=== PATIENT | female | born 1950 | race Caucasian/White ===

== ENCOUNTER 2020-04-17 16:16 | Inpatient (IN) | payer MEDICARE ==
[~2020-04-17] VITALS: Ht 157.5 cm; Wt 77.5 kg
[2020-04-17] MEDS ORDERED: FLUORESCEIN OPHTH TEST STRIP. ONE (16:46)
[2020-04-17] MEDS ORDERED: TETRACAINE 0.5% OPHTH SOLUTION 4ML BOTTLE. ONE (16:46)
--- NOTE | 2020-04-17 16:47 | EKG ---
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
[2020-04-17 16:50] LABS: BASO # 0.2 x10^3/uL (0.0-0.2); BASO % 1 % (0-3); EOS % 0 % (0-3); HEMATOCRIT 31.4 % (36.0-47.0); HEMOGLOBIN 9.8 g/dL (12.0-15.5); LYMPH # 1.8 x10^3/uL (1.0-4.8); LYMPH % 8 % (24-48); MEAN CORPUSCULAR HEMOGLOBIN 20 pg (25-35); MEAN CORPUSCULAR HGB CONC 31 g/dL (31-37); MEAN CORPUSCULAR VOLUME 65 fL (79-100); MONO # 2.3 x10^3/uL (0.0-1.1); MONO % 11 % (0-9); NEUT # 16.4 x10^3/uL (1.8-7.7); NEUT % 79 % (31-73); PLATELET COUNT 477 x10^3/uL (140-400); RED BLOOD COUNT 4.85 x10^6/uL (3.50-5.40); RED CELL DISTRIBUTION WIDTH 19.9 % (11.5-14.5); WHITE BLOOD COUNT 20.7 x10^3/uL (4.0-11.0)
[2020-04-17] MEDS ORDERED: TETRACAINE 0.5% OPHTH SOLUTION 4ML BOTTLE. OU ONE (17:00)
[2020-04-17] MEDS ORDERED: FLUORESCEIN OPHTH TEST STRIP. OU ONE (17:00)
--- NOTE | 2020-04-17 17:08 | PHYS DOC ---
Past Medical History Past Medical History: No Pertinent History Past Surgical History: No Surgical History Smoking Status: Former Smoker Alcohol Use: None Drug Use: None General Adult EDM: Chief Complaint: VISION PROBLEM HPI: HPI: Patient is a 70 year old female who was brought to ER for evaluation by her family due to frontal headache with loss of vision bilaterally since 7 pm on 04/15/20. Patient stated that since Thursday she started having headache and blurry vision, then she gradually lost her vision over that time. She has have headache on the forehead area. She denies any weakness or numbness anywhere. Patient denies any cough, no fever, no chest pain. Patient does complain of tr ouble breathing when she walks. Patient lives alone by herself, her family could not get a hold of her over the weekend so they came and checked on her and decided to take her here for evaluation. Patient do not have a doctor, she had not seen a doctor for a long time, patient was a former smoker. Patient is not currently on any medication. Patient is not sure if she has been exposed to anybody with the coronavirus. Review of Systems: Review of Systems: Constitutional: Denies fever or chills. [] Eyes: positive for vision loss HENT: Denies nasal congestion or sore throat. [] Respiratory: Denies cough or shortness of breath. [] Cardiovascular: Denies chest pain or edema. [] GI: Denies abdominal pain, nausea, vomiting, bloody stools or diarrhea. [] : Denies dysuria. [] Musculoskeletal: Denies back pain or joint pain. [] Integument: Denies rash. [] Neurologic: Positive for headache, no focal weakness or sensory changes. [] Endocrine: Denies polyuria or polydipsia. [] Lymphatic: Denies swollen glands. [] Psychiatric: Denies depression or anxiety. [] Heart Score: Risk Factors: Risk Factors: DM, Current or recent (<one month) smoker, HTN, HLP, family history of CAD, obesity. Risk Scores: Score 0 - 3: 2.5% MACE over next 6 weeks - Discharge Home Score 4 - 6: 20.3% MACE over next 6 weeks - Admit for Clinical Observation Score 7 - 10: 72.7% MACE over next 6 weeks - Early Invasive Strategies Current Medications: Current Medications Medications (Trade) Dose Ordered Sig/Rachelle Start Time Stop Time Status Last Admin Dose Admin Fluorescein Sodium (Ful-Zahraa) 1 strip 1X ONCE 04/17/20 17:00 04/17/20 17:01 DC 04/17/20 16:51 1 STRIP Tetracaine HCl (Tetracaine) 40 drop STK-MED ONCE 04/17/20 16:46 04/17/20 16:46 DC Timolol Maleate (Timoptic 0.5% Ophth) 1 drop DAILY STAT 04/17/20 17:01 04/17/20 17:02 UNV Allergies: Allergies: Allergies Coded Allergies Type Severity Reaction Last Updated Verified No Known Drug Allergies 04/17/20 No Physical Exam: PE: Constitutional: Well developed, well nourished, no acute distress, non-toxic appearance. [] HENT: Normocephalic, atraumatic, bilateral external ears normal, oropharynx moist, no oral exudates, nose normal. [] Eyes: EOMI, conjunctiva with mild injection, cornea appears cloudy, pupils were dilated to 5 mm bilaterally, sluggish. Patient could not see any fingers in front of her eyes. She just saw light. Neck: Normal range of motion, no tenderness, supple, no stridor. [] Cardiovascular:Heart rate regular rhythm, no murmur [] Lungs & Thorax: Bilateral breath sounds clear to auscultation [] Abdomen: Bowel sounds normal, soft, no tenderness, no masses, no pulsatile masses. [] Skin: Warm, dry, no erythema, no rash. [] Back: No tenderness, no CVA tenderness. [] Extremities: No tenderness, no cyanosis, no clubbing, ROM intact, no edema. [] Neurologic: Alert and oriented X 3, normal motor function, normal sensory fu nction, no focal deficits noted. [] Psychologic: Affect normal, judgement normal, mood normal. [] Current Patient Data: Labs: Laboratory Tests Test 04/17/20 16:29 04/17/20 16:37 Glucose (Fingerstick) 160 mg/dL (70-99) H White Blood Count 20.7 x10^3/uL (4.0-11.0) H Red Blood Count 4.85 x10^6/uL (3.50-5.40) Hemoglobin 9.8 g/dL (12.0-15.5) L Hematocrit 31.4 % (36.0-47.0) L Mean Corpuscular Volume 65 fL (79-100) L Mean Corpuscular Hemoglobin 20 pg (25-35) L Mean Corpuscular Hemoglobin Concent 31 g/dL (31-37) Red Cell Distribution Width 19.9 % (11.5-14.5) H Platelet Count 477 x10^3/uL (140-400) H Neutrophils (%) (Auto) 79 % (31-73) H Lymphocytes (%) (Auto) 8 % (24-48) L Monocytes (%) (Auto) 11 % (0-9) H Eosinophils (%) (Auto) 0 % (0-3) Basophils (%) (Auto) 1 % (0-3) Neutrophils # (Auto) 16.4 x10^3/uL (1.8-7.7) H Lymphocytes # (Auto) 1.8 x10^3/uL (1.0-4.8) Monocytes # (Auto) 2.3 x10^3/uL (0.0-1.1) H Eosinophils # (Auto) 0.0 x10^3/uL (0.0-0.7) Basophils # (Auto) 0.2 x10^3/uL (0.0-0.2) Platelet Estimate Pending Laboratory Tests 04/17/20 16:37 EKG: EKG: EKG was done at 1632, heart rate of 111 BPM, sinus tachycardia, NO STEMI. Radiology/Procedures: Radiology/Procedures: [][facility] [address] [place] [address] IMAGING REPORT Signed PATIENT: CELI REHMAN ACCOUNT: [id number] : 1950 LOCATION: ER AGE: 70 SEX: F EXAM STATUS: REG ER ORD. PHYSICIAN: ALEC DE LEON DO REASON: HEADACHE,LOSS OF VISION BILATERALLY SINCE 2 DAYS AGO PROCEDURE: CT HEAD WO CONTRAST CT HEAD/BRAIN WO History: Reason: HEADACHE,LOSS OF VISION BILATERALLY SINCE 2 DAYS AGO / Spl. Instructions: / History: Comparison: None. Technique: Noncontrast CT imaging was performed of the head. Exposure: One or more of the following individualized dose reduction techniques were utilized for this examination: 1. Automated exposure control 2. Adjustment of the mA and/or kV according to patient size 3. Use of iterative reconstruction technique. Findings: No intracranial hemorrhage. No mass effect. No hydrocephalus. Mild foci of decreased attenuation within hemispheric white matter, most often due to chronic microvascular ischemia. Mild brain parenchymal volume loss. Imaged orbits are unremarkable. Imaged paranasal sinuses and mastoid air cells are clear. No acute calvarial fracture. Impression: 1. No acute intracranial abnormality. Electronically signed by: Shiva Barksdale DO (04/17/2020 5:49 PM) SASHAELLYN DICTATED and SIGNED BY: SHIVA BARKSDALE DO DATE: 04/17/20 [id number] [facility] [address] [place] [address] IMAGING REPORT Signed PATIENT: CELI REHMAN ACCOUNT: [id number] : 1950 LOCATION: ER AGE: 70 SEX: F EXAM STATUS: REG ER ORD. PHYSICIAN: ALEC DE LEON DO REASON: SOA PROCEDURE: CHEST AP ONLY XR CHEST 1V History: Reason: SOA / Spl. Instructions: / History: Comparison: None. Findings: No consolidation or pleural effusion. Normal heart size. No pneumothorax. Impression: 1. No acute cardiopulmonary process. Electronically signed by: Shiva Barksdale DO (04/17/2020 6:30 PM) SASHAELLYN DICTATED and SIGNED BY: SHIVA BARKSDALE DO DATE: 04/17/20 [id number] Course & Med Decision Making: Course & Med Decision Making Pertinent Labs and Imaging studies reviewed. (See chart for details) using Tonnel Pen to measure IO PRESSURE OF BOTH EYES: Intraoccular pressure on right eye: 45 Intraoccular pressure on left eye: 44 THESE PRESSURE READING ARE HIGH, CONSISTENT WITH GLAUCOMA. Discussed with the Opthalmologist addiction professional, Dr. SANTAMARIA WHO RECOMMENDED .5 % TIMOLOL 1 DROP IN EACH EYE BID, DIAMOX 500 MG IV BID, MANNITOL INFUSION 1.5 G/KG OVER 60 MINUTES, WILL SEE PATIENT IN THE HOSPITAL. Discussed with Dr. Mckeon, hospitalist, who agreed to admit patient. At 1805, after timolol eye drop were given and iv Diamox was given, patient said she felt much better, she can actually see out of her eyes now. Patient can read the number on her phone at this time. Dragon Disclaimer: Dragon Disclaimer: This electronic medical record was generated, in whole or in part, using a voice recognition dictation system. Departure Departure Impression: Primary Impression: Glaucoma Additional Impressions: Headache Binocular vision loss Person under investigation for COVID-19 Disposition: ADMITTED INPT THIS HOSP Admitting Physician: EDIL (DR. MCKEON) Condition: IMPROVED Referrals: NO PCP (PCP) ALEC DE LEON DO Apr 17, 2020 17:08
[2020-04-17 17:15] LABS: % BANDS 2 % (0-9); % LYMPHS 5 % (24-48); % MONOS 9 % (0-10); % SEGS 84 % (35-66); ANISOCYTOSIS SLIGHT; HYPOCHROMIA MARKED; MICROCYTOSIS MARKED; PLT ESTIMATE INCREASED (ADEQUATE); POIKILOCYTOSIS SLIGHT
[2020-04-17] MEDS ORDERED: TIMOLOL 0.5% OPHTH SOLUTION 5ML BOTTLE. OU ONE (17:15)
[2020-04-17] MEDS ORDERED: acetaZOLAMIDE SODIUM 500 MG VIAL. IVP ONE (17:30)
--- NOTE | 2020-04-17 17:51 | RAD ---
CT HEAD/BRAIN WO History: Reason: HEADACHE,LOSS OF VISION BILATERALLY SINCE 2 DAYS AGO / Spl. Instructions: / History : Comparison: None. Technique: Noncontrast CT imaging was performed of the head. Exposure: One or more of the following individualized dose reduction techniques were utilized for thi s examination: 1. Automated exposure control 2. Adjustment of the mA and/or kV according to patient size 3. Use of iterative reconstruction technique. Findings: No intracranial hemorrhage. No mass effect. No hydrocephalus. Mild foci of decreased attenuation within hemispheric white matter, most often due to chronic microva scular ischemia. Mild brain parenchymal volume loss. Imaged orbits are unremarkable. Imaged paranasal sinuses and mastoid air cells are clear. No acute ca lvarial fracture. Impression: 1. No acute intracranial abnormality. Electronically signed by: Shiva Barksdale DO (04/17/2020 5:49 PM) [facility]
[2020-04-17 17:53] LABS: ALBUMIN 3.1 g/dL (3.4-5.0); ALBUMIN/GLOBULIN RATIO 0.8 (1.0-1.7); CALCIUM 8.9 mg/dL (8.5-10.1); CREATININE 0.8 mg/dL (0.6-1.0); GFR 70.7; MAGNESIUM 2.1 mg/dL (1.8-2.4); POTASSIUM 3.7 mmol/L (3.5-5.1); TOTAL BILIRUBIN 1.2 mg/dL (0.2-1.0); TOTAL PROTEIN 7.2 g/dL (6.4-8.2)
[2020-04-17] MEDS ORDERED: TOTAL VOLUME IV ONE ×2 (18:00)
[2020-04-17] MEDS ORDERED: MANNITOL IV ONE ×2 (18:00)
[2020-04-17] MEDS ORDERED: IV NORMAL SALINE 1000ML BAG 1,000 ML IV ONE (18:00)
[2020-04-17] MEDS: cefTRIAXone IV Push 1 GM VIAL. IVP SCH (18:13)
--- NOTE | 2020-04-17 18:29 | HP ---
ADMIT DATE: 04/17/2020 CHIEF COMPLAINT: Visual problems. HISTORY OF PRESENT ILLNESS: The patient is a pleasant 70-year-old female who developed visual problems over the past 3 days. It started on Thursday, it has gotten a lot worse. In fact, today she could not even see her finger. Dr. Alicea our ER physician checked her ocular pressures and indeed they are above normal. They are quite high at 45. We were concerned that she has acute glaucoma. Dr. Alicea called Dr. Espinoza, our director of sales support who is club concierge. He is agreed to help us with this case. We are going to give her IV mannitol, beta morenita eyedrops, acetazolamide. The patient is currently being examined in the ER. PAST MEDICAL HISTORY: Previous tobacco abuse. ALLERGIES: None. FAMILY HISTORY: Diabetes. SOCIAL HISTORY: She is retired. She does not drink, smoke or take drugs. MEDICATIONS: Reviewed, please refer to the MRAD. REVIEW OF SYSTEMS: GENERAL: No history of weight change, weakness or fevers. SKIN: No bruising, hair changes or rashes. EYES: She is complaining of some visual changes. She cannot see well. She was able to grab my card though, although she was not able to read it. NOSE AND THROAT: No history of nosebleeds, hoarseness or sore throat. HEART: No history of palpitations, chest pain or shortness of breath on exertion. LUNGS: Denies cough, hemoptysis, wheezing or shortness of breath. GASTROINTESTINAL: Denies changes in appetite, nausea, vomiting, diarrhea or constipation. GENITOURINARY: No history of frequency, urgency, hesitancy or nocturia. NEUROLOGIC: Denies history of numbness, tingling, tremor or weakness. PSYCHIATRIC: No history of panic, anxiety or depression. ENDOCRINE: No history of heat or cold intolerance, polyuria or polydipsia. EXTREMITIES: Denies muscle weakness, joint pain, pain on walking or stiffness. PHYSICAL EXAMINATION: VITALS: Within normal limits and are stable. GENERAL: No apparent distress. Alert and oriented. HEENT: Normal cephalic atraumatic, external auditory canals are patent EYES: She has some reddening of the right sclerae. Ocular pressures are 45. Extraocular muscles are intact. MUSCULOSKELETAL: Well developed, well nourished, good range of motion ENDOCRINE: No thyromegaly was palpated LYMPHATICS: No cervical chain or axillary nodes were noted HEMATOPOIETIC: No bruising NECK: Supple, no JVD, no thyromegaly was noted. LUNGS: Clear to auscultation in all lung [place] without rhonchi or wheezing. HEART: RRR, S1, S2 present. Peripheral pulses intact, no obvious murmurs were noted. ABDOMEN: Soft, nontender. Positive bowel sounds no organomegaly, normal bowel sounds. EXTREMITIES: Without any cyanosis, clubbing, or edema. Pedal pulses intact, Homans sign is negative. NEUROLOGIC: Normal speech, normal tone. A & O x3, moves all extremities, no obvious focal deficits. PSYCHIATRIC: Normal affect, normal mood. Stable. SKIN: No ulcerations or rashes, good skin turgor, no jaundice. VASCULAR: Good capillary refill, neurovascular bundle appears to be intact. LABORATORY DATA: White count is 20, hemoglobin 9.8, platelets 477. Electrolytes: Sodium 136, potassium 3.7, chloride ____, bicarbonate 22, BUN 24, creatinine 0.8, glucose 160. BNP slightly high at 594. Troponin is 0. Albumin is low at 3.1. CT of the head, I reviewed the films myself. I do not see anything obvious. Radiology says there is no obvious intracranial abnormality on his read. ASSESSMENT AND PLAN: Probable acute glaucoma with ocular pressures greater than 45. The patient has been admitted. We will start acetazolamide, mannitol and beta morenita eyedrops. Consult Ophthalmology. Home meds, DVT prophylaxis. Full code. Regarding the leukocytosis, I am also going to add in IV Rocephin, IV fluids. We are swabbing her for COVID-19. SEAN CABRERA DO DR: VLADISLAV/edinson JOB#: [id number] / [id number]
--- NOTE | 2020-04-17 18:32 | RAD ---
XR CHEST 1V History: Reason: SOA / Spl. Instructions: / History: Comparison: None. Findings: No consolidation or pleural effusion. Normal heart size. No pneumothorax. Impression: 1. No acute cardiopulmonary process. Electronically signed by: Shiva Barksdale DO (04/17/2020 6:30 PM) [facility]
[2020-04-17] MEDS ORDERED: TIMOLOL 0.5% OPHTH SOLUTION 5ML BOTTLE. OU SCH (19:00)
[2020-04-17] MEDS ORDERED: MANNITOL 25% 12.5 G/50 ML VIAL. IV ONE (19:00)
[2020-04-17] MEDS ORDERED: MANNITOL 20% PREMIX 500 ML IV ONE (19:30)
[2020-04-17 19:46] LABS: BILIRUBIN,URINE NEGATIVE (NEG); CLARITY,URINE CLEAR; COLOR,URINE YELLOW; NITRITE,URINE POSITIVE (NEG); PH,URINE 8.5 (<5.0-8.0); PROTEIN,URINE 30 mg/dL (NEG-TRACE)
[2020-04-17 19:52] LABS: RBC,URINE 0 /HPF (0-2); WBC,URINE 20-40 /HPF (0-4)
[2020-04-17 19:53] LABS: BACTERIA,URINE FEW /HPF (0-FEW)
[2020-04-17 20:49] VITALS: BP 155/78
--- NOTE | 2020-04-17 21:00 | NUR ---
The patient, CELI REHMAN, 70 y/o, F admitted by SEAN CABRERA III, DO, was given written information regarding hospital policies, unit procedures and contact persons. pt arrived to unit via gurney. pivoted to her bed. states she can see shadows and the STOP sign on the wall at the end of her bed. instructed not to get oob. orders say bed rest. will try purwic then go to bed palacios. Valuables were checked and pt belongings were documented in the EMR. kept at bed side. history and assesment finished, last seen by medical was 1991. lcrn
[2020-04-17] MEDS: TIMOLOL 0.5% OPHTH SOLUTION 5ML BOTTLE. OU SCH (21:37)
[2020-04-17] MEDS: BRIMONIDINE 0.2% OPHTH SOLUTION 5ML BOTTLE. OU SCH ×2 (21:37→21:54)
[2020-04-17 22:36] VITALS: BP 121/51
[2020-04-17] MEDS ORDERED: ACET325T21 PO (23:40)
[2020-04-17] MEDS ORDERED: NAPR220T70 PO (23:40)
[2020-04-18 02:44] VITALS: BP 136/51
[2020-04-18 07:00] VITALS: BP 115/47
[2020-04-18] MEDS: TIMOLOL 0.5% OPHTH SOLUTION 5ML BOTTLE. OU SCH ×2 (08:05→21:11)
[2020-04-18] MEDS: BRIMONIDINE 0.2% OPHTH SOLUTION 5ML BOTTLE. OU SCH ×2 (08:12→21:11)
--- NOTE | 2020-04-18 08:17 | PDOC ---
[employer] PROGRESS NOTE Date of Service DOS: DATE: 04/18/20 TIME: 08:10 Chief Complaint Chief Complaint - Acute glaucoma - Headache - Bilateral visual loss History of Present Illness History of Present Illness 04/18/2020 - Pt seen and examined - Sarthak RN - Chart reviewed Vitals/I&O Vitals/I&O: Vital Signs Date Time Temp Pulse Resp B/P (MAP) Pulse Ox O2 Delivery O2 Flow Rate FiO2 04/18/20 02:44 98.9 79 16 136/51 (79) 98 Room Air 98.9 I & O 04/17/20 04/17/20 04/18/20 15:00 23:00 07:00 Intake Total 260 ml 0 ml Output Total 1400 ml 300 ml Balance -1140 ml -300 ml Physical Exam Physical Exam: Eyes; patient's vision is improving she can see how many fingers I have and can see the clock General: Alert, No acute distress Heart: Regular rate Lungs: Clear Abdomen: Normal bowel sounds Extremities: No clubbing Skin: No rashes Labs Labs: Laboratory Tests Test 04/17/20 16:29 04/17/20 16:37 04/17/20 17:30 04/17/20 18:40 Glucose (Fingerstick) 160 mg/dL (70-99) White Blood Count 20.7 x10^3/uL (4.0-11.0) Red Blood Count 4.85 x10^6/uL (3.50-5.40) Hemoglobin 9.8 g/dL (12.0-15.5) Hematocrit 31.4 % (36.0-47.0) Mean Corpuscular Volume 65 fL (79-100) Mean Corpuscular Hemoglobin 20 pg (25-35) Mean Corpuscular Hemoglobin Concent 31 g/dL (31-37) Red Cell Distribution Width 19.9 % (11.5-14.5) Platelet Count 477 x10^3/uL (140-400) Neutrophils (%) (Auto) 79 % (31-73) Lymphocytes (%) (Auto) 8 % (24-48) Monocytes (%) (Auto) 11 % (0-9) Eosinophils (%) (Auto) 0 % (0-3) Basophils (%) (Auto) 1 % (0-3) Neutrophils # (Auto) 16.4 x10^3/uL (1.8-7.7) Lymphocytes # (Auto) 1.8 x10^3/uL (1.0-4.8) Monocytes # (Auto) 2.3 x10^3/uL (0.0-1.1) Eosinophils # (Auto) 0.0 x10^3/uL (0.0-0.7) Basophils # (Auto) 0.2 x10^3/uL (0.0-0.2) Segmented Neutrophils % 84 % (35-66) Band Neutrophils % 2 % (0-9) Lymphocytes % 5 % (24-48) Monocytes % 9 % (0-10) Platelet Estimate Increased (ADEQUATE) Hypochromasia Marked Poikilocytosis Slight Anisocytosis Slight Microcytosis Marked Lactic Acid Level 2.5 mmol/L (0.4-2.0) Sodium Level 136 mmol/L (136-145) Potassium Level 3.7 mmol/L (3.5-5.1) Chloride Level 101 mmol/L (98-107) Carbon Dioxide Level 22 mmol/L (21-32) Anion Gap 13 (6-14) Blood Urea Nitrogen 24 mg/dL (7-20) Creatinine 0.8 mg/dL (0.6-1.0) Estimated GFR (Cockcroft-Gault) 70.7 BUN/Creatinine Ratio 30 (6-20) Glucose Level 131 mg/dL (70-99) Calcium Level 8.9 mg/dL (8.5-10.1) Magnesium Level 2.1 mg/dL (1.8-2.4) Total Bilirubin 1.2 mg/dL (0.2-1.0) Aspartate Amino Transf (AST/SGOT) 20 U/L (15-37) Alanine Aminotransferase (ALT/SGPT) 25 U/L (14-59) Alkaline Phosphatase 74 U/L (46-116) Troponin I Quantitative < 0.017 ng/mL (0.000-0.055) EN-Pfp-N-Type Natriuretic Peptide 594 pg/mL (0-124) Total Protein 7.2 g/dL (6.4-8.2) Albumin 3.1 g/dL (3.4-5.0) Albumin/Globulin Ratio 0.8 (1.0-1.7) SARS-CoV-2 Antigen (Rapid) Negative (NEGATIVE) Test 04/17/20 19:30 04/17/20 21:25 Urine Collection Type Unknown Urine Color Yellow Urine Clarity Clear Urine pH 8.5 (<5.0-8.0) Urine Specific [place] 1.015 (1.000-1.030) Urine Protein 30 mg/dL (NEG-TRACE) Urine Glucose (UA) Negative mg/dL (NEG) Urine Ketones (Stick) Negative mg/dL (NEG) Urine Blood Negative (NEG) Urine Nitrite Positive (NEG) Urine Bilirubin Negative (NEG) Urine Urobilinogen Dipstick 1.0 mg/dL (0.2 mg/dL) Urine Leukocyte Esterase Large (NEG) Urine RBC 0 /HPF (0-2) Urine WBC 20-40 /HPF (0-4) Urine Squamous Epithelial Cells Few /LPF Urine Bacteria Few /HPF (0-FEW) Lactic Acid Level 1.9 mmol/L (0.4-2.0) Review of Systems Review of Systems: No rashes. Pt is oriented and in NAD. Assessment and Plan Assessmemt and Plan Problems Medical Problems: (1) Binocular vision loss Status: Acute (2) Glaucoma Status: Acute (3) Headache Status: Acute (4) Person under investigation for COVID-19 Status: Acute Assessment: 1. Acute Glaucoma 2. Bilateral visual loss 3. Headache Plan: 1. Continue Mannitol, Acetazolamide, and beta morenita eye droplets 2. Await ophthalmology input 3. Cont monitoring 4. Full code 5. Appreciate specialist input Comment Review of Relevant I have reviewed the following items alana (where applicable) has been applied. Medications: Current Medications Medications (Trade) Dose Ordered Sig/Rachelle Route PRN Reason Start Time Stop Time Status Last Admin Dose Admin Tetracaine HCl (Tetracaine) 1 drop 1X ONCE OU 04/17/20 17:00 04/17/20 17:01 DC 04/17/20 16:51 Fluorescein Sodium (Ful-Zahraa) 1 strip 1X ONCE OU 04/17/20 17:00 04/17/20 17:01 DC 04/17/20 16:51 Timolol Maleate (Timoptic 0.5% Ophth) 1 drop 1X ONCE OU 04/17/20 17:15 04/17/20 17:16 DC 04/17/20 17:32 Acetazolamide Sodium (Diamox Inj) 500 mg 1X ONCE IVP 04/17/20 17:30 04/17/20 17:31 DC 04/17/20 17:33 Mannitol 112.5 g/ Miscellaneous 450 ml @ 450 mls/hr 1X ONCE IV 04/17/20 18:00 04/17/20 18:59 DC 04/17/20 18:05 Sodium Chloride 1,000 ml @ 1,000 mls/hr 1X ONCE IV 04/17/20 18:00 04/17/20 18:59 DC 04/17/20 18:06 Ceftriaxone Sodium (Rocephin) 1 gm Q24H IVP 04/17/20 18:00 04/17/20 18:13 Mannitol 500 ml @ 600 mls/hr 1X ONCE IV 04/17/20 19:30 04/17/20 20:19 DC 04/17/20 19:10 Mannitol (Mannitol) 12.5 g 1X ONCE IV 04/17/20 19:00 04/17/20 19:02 DC 04/17/20 19:11 Acetazolamide (Diamox) 500 mg BID PO 04/17/20 19:01 04/17/20 19:14 Timolol Maleate (Timoptic 0.5% Ophth) 1 drop BID OU 04/17/20 21:00 04/18/20 08:05 Brimonidine Tartrate (Alphagan) 1 drop BID OU 04/17/20 21:00 04/17/20 21:37 Justifications for Admission Other Justification SEAN CABRERA III DO Apr 18, 2020 08:17
[2020-04-18 11:00] VITALS: BP 120/50
--- NOTE | 2020-04-18 13:39 | NUR ---
SS following for discharge planning. SS reviewed pt chart and discussed with pt RN. Pt is from home and is currently on room air. COVID19 negative on rapid test. Pt on IV Rocephin for UTI. Probable discharge to home tomorrow. SS will continue to follow for discharge planning.
--- NOTE | 2020-04-18 14:22 | NUR ---
SS following up with discharge planning. Manager Electrical, Dr. Espinoza, saw pt in room and reported that pt is to follow up with Dr. Edison Harrington in [place], [place] tomorrow for further evaluation.
--- NOTE | 2020-04-18 14:22 | NUR ---
spoke to Dr. Espinoza over the phone about pt. Pt is to discharge tomorrow into Dr. Edison Harrington's care, [phone]. Pt will likely receive in office laser surgery on 04/19, then to schedule cataract surgery on a later date. 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 Dr. Espinoza stated the patient is to continued both eye drops and PO medications until further instructions from Dr. Harrington.
[2020-04-18 15:00] VITALS: BP 121/51
[2020-04-18] MEDS: cefTRIAXone IV Push 1 GM VIAL. IVP SCH (17:26)
[2020-04-18 19:22] VITALS: BP 141/87
--- NOTE | 2020-04-18 20:33 | PN ---
DATE: 04/18/2020 Please note the patient was a patient that presented to the Emergency Room on 04/17/2020 with a 2-day history of vision loss in both eyes, which had progressed over the previous 2 days. She was noted in the Emergency Room to have elevated intraocular pressures by Andres-Pen in the mid 40s. IV mannitol was administered in the Emergency Room along with oral Diamox and topical timolol and brimonidine. The patient has noted improvement in her visual function on bedside examination on 04/18. Dr. Edison Cotton was contacted as the patient had seen Dr. Cotton in 03/2019. At that time, she was noted to have narrow angles and at risk for narrow-angle glaucoma and was to be scheduled for cataract extraction in both eyes with phacomorphic lenses. The patient did not follow up. Dr. Cotton was consulted today and has agreed to see the patient in transfer on the and proceed with either iridotomy and subsequent cataract extraction as safely determined. The patient will be discharged on topical medications along with oral Diamox and the care will be transferred to Dr. Cotton's care. KELSEY SANTAMARIA MD DR: IGNACIA/edinson JOB#: [id number] / [id number]
[2020-04-18] MEDS: LACTOBACILLUS RHAMNOSUS GG 1 CAPSULE. PO SCH (21:11)
[2020-04-18 22:10] VITALS: BP 136/69
[2020-04-19 02:06] VITALS: BP 137/54
[2020-04-19 07:30] VITALS: BP 124/42
[2020-04-19] MEDS: BRIMONIDINE 0.2% OPHTH SOLUTION 5ML BOTTLE. OU SCH ×2 (08:23→21:48)
[2020-04-19] MEDS: TIMOLOL 0.5% OPHTH SOLUTION 5ML BOTTLE. OU SCH ×2 (08:23→21:02)
[2020-04-19] MEDS: LACTOBACILLUS RHAMNOSUS GG 1 CAPSULE. PO SCH ×2 (08:23→21:06)
--- NOTE | 2020-04-19 10:37 | PDOC ---
[facility] PROGRESS NOTE Date of Service DOS: DATE: 04/19/20 TIME: 10:36 Chief Complaint Chief Complaint - Acute glaucoma - Headache - Bilateral visual loss History of Present Illness History of Present Illness 04/19/2020 No acute events overnight. Patient seen and examined bedside. Reports improved vision in both eyes. No pain reported at this time. Patient's chart, labs, images were reviewed and discussed with RN. Pending Ortho scheduling for laser surgery. Anticipate discharge in the next 24 to 48 hours. 04/18/2020 - Pt seen and examined - Dw RN - Chart reviewed Vitals/I&O Vitals/I&O: Vital Signs Date Time Temp Pulse Resp B/P (MAP) Pulse Ox O2 Delivery O2 Flow Rate FiO2 04/19/20 08:00 Room Air 04/19/20 07:30 96.9 78 16 124/42 (69) 98 96.9 I & O 04/18/20 04/18/20 04/19/20 15:00 23:00 07:00 Intake Total 800 ml 700 ml Output Total 700 ml Balance 800 ml 0 ml Physical Exam Physical Exam: Eyes; patient's vision is improving she can see how many fingers I have and can see the clock General: Alert, No acute distress Heart: Regular rate Lungs: Clear Abdomen: Normal bowel sounds Extremities: No clubbing Skin: No rashes Assessment and Plan Assessmemt and Plan Problems Medical Problems: (1) Binocular vision loss Status: Acute (2) Glaucoma Status: Acute (3) Headache Status: Acute (4) Person under investigation for COVID-19 Status: Acute Comment Review of Relevant I have reviewed the following items alana (where applicable) has been applied. Medications: Current Medications Medications (Trade) Dose Ordered Sig/Rachelle Route PRN Reason Start Time Stop Time Status Last Admin Dose Admin Lactobacillus Rhamnosus (Culturelle) 1 cap BID PO 04/18/20 21:00 04/19/20 08:23 Justifications for Admission Other Justification ORLY ALVAREZ MD Apr 19, 2020 10:37
[2020-04-19 11:00] VITALS: BP 131/65
--- NOTE | 2020-04-19 12:17 | NUR ---
SS following up with discharge planning. SS reviewed pt chart and discussed with pt RN. Pt is currently on room air. COVID19 negative. Pt on IV Rocephin. Pt needing appointment with Dr. Edison Cotton at [address], [place] [address], . SS contacted Dr. Cotton's office to confirm that appointment has been made. Per RN, pt's daughter was to contact the office and schedule appointment this morning. Possible need for home healthcare. Liz from [facility] meeting with pt and discussing home healthcare. SS will continue to follow for discharge planning.
[2020-04-19 15:00] VITALS: BP 117/46
--- NOTE | 2020-04-19 15:37 | NUR ---
SS following up with discharge planning. SS met with pt and spoke with pt's daughter via phone. Pt has appointment tomorrow at Dr. Cotton's office. They are able to see pt at either 1330 or 1400. Pt's daughter contacted office to confirm appointment. Pt requesting to return to home tomorrow so she can attend her appointment,
[2020-04-19] MEDS: cefTRIAXone IV Push 1 GM VIAL. IVP SCH (17:55)
[2020-04-19 19:54] VITALS: BP 137/62
[2020-04-19 22:22] VITALS: BP 104/68
[2020-04-20 02:25] VITALS: BP 127/63
[2020-04-20 07:00] VITALS: BP 122/53
[2020-04-20] MEDS: LACTOBACILLUS RHAMNOSUS GG 1 CAPSULE. PO SCH (07:37)
[2020-04-20] MEDS: BRIMONIDINE 0.2% OPHTH SOLUTION 5ML BOTTLE. OU SCH (07:38)
[2020-04-20] MEDS: TIMOLOL 0.5% OPHTH SOLUTION 5ML BOTTLE. OU SCH (07:38)
--- NOTE | 2020-04-20 10:05 | NUR ---
SS following up with discharge planning. SS reviewed pt chart and discussed with pt RN. Pt is currently on room air. PT recommended home with home healthcare. Pt and family agreeable to home healthcare with [facility], ; fax [phone]. Referral phoned and faxed to [facility]. [facility] setting pt up with Primary Care Doctor. Pt has appointment with Dr. Edison Cotton in [place], [place] for eyes. Pt's appointment is at 1400 today. SS confirmed appointment with physicians office. SS contacted pt's daughter and discussed. Pt's daughter reported that she will come to the hospital between 1230 and 1300 today to discharge pt to home. Pt's daughter reported that pt will be staying with friends and family and will not be alone. Physician notified. SS currently awaiting home healthcare orders. SS will continue to follow for discharge planning.
--- NOTE | 2020-04-20 10:58 | DISCH ---
DISCHARGE INSTRUCTIONS Condition on Discharge Condition on Discharge: Stable Activity After Discharge Activity Instructions for Disc: Activity as tolerated Lifting Instructions after Dis: Do not lift >10 pounds Driving Instructions after Dis: Do not drive today Follow-Up Follow up with: PCP within 2 weeks of discharge Follow Up With: Ophthalmology appointment for surgery today at 2 PM ORLY ALVAREZ MD Apr 20, 2020 10:58
[2020-04-20 11:00] VITALS: BP 144/75
--- NOTE | 2020-04-20 11:06 | SNU/HH DC ---
DISCHARGE WITH HOME HEALTH DISCHARGE INFORMATION: Discharge Date: Apr 20, 2020 Final Diagnosis: Problems Medical Problems: (1) Binocular vision loss Status: Acute (2) Glaucoma Status: Acute (3) Headache Status: Acute (4) Person under investigation for COVID-19 Status: Acute Condition on Discharge: Stable HOME HEALTH: Face to Face: I certify this patient is under my care and that I, or a nurse practitioner or physician's language assistant working with me, had a face to face encounter that meets the physician face to face encounter requirements with this patient on []. RN For Eval/Treatment: Yes Physical Therapy For: Evalulation/Treatment Occupational Therapy For: Evaluation/Treatment Home Health Aide For: Self-care Pt Meets Homebound Status: Poor coordination w/ amb., Frequent falls w/ injury, Limited distance walking, Unable to negotiate home POST DISCHARGE ORDERS: Activity Instructions for Disc: Activity as tolerated DIET AFTER DISCHARGE: Cardiac CHECKS AFTER DISCHARGE: Checks after discharge: Check blood press - daily FOLLOW-UP: Follow up with: PCP within 2 weeks of discharge Follow Up With: Ophthalmology appointment for surgery today at 2 PM CERTIFICATION STATEMENT: Certification Statement: Certification Statement: Based on the above finding, I certify that this patient is confined to the home and needs intermittent fpc care, physical therapy and/or speech therapy, or continues to need occupational therapy.~ This patient is under my care, and I have initiated the establishment of the plan of care.~ This patient will be followed by myself or a community physician who will periodically review the plan of care. Home Meds Reported Medications Acetaminophen (ACETAMINOPHEN) 325 Mg Tablet, 650 MG PO PRN Q6HRS PRN for PAIN, TAB 04/17/20 Naproxen Sodium (ALEVE) 220 Mg Tablet, 220 MG PO BID for paib, TAB 04/17/20 ORLY ALVAREZ MD Apr 20, 2020 11:06
--- NOTE | 2020-04-20 11:34 | NUR ---
SS following up with discharge planning. Discharge orders received for home with home healthcare. Discharge orders phoned and faxed to [facility], ; fax [phone]. Pt's RN notified.
[2020-04-20] MEDS: cefTRIAXone IV Push 1 GM VIAL. IVP SCH (12:56)
--- NOTE | 2020-04-20 14:16 | NUR ---
Patient to follow up with surgical eye appointment today. patient stable at time of discharge. no prescriptions ordered per Dr. Aviles; leaving eye drop prescriptions up to eye doctor. Patients IVs removed and tele monitor off. Patient escorted to daughters personal vehicle per wheelchair by this RN. All belongings with patient at time of discharge.
--- NOTE | 2020-04-22 20:39 | PDOC3 ---
[facility]-Discharge Summary Date of Admission: Date of Admission: Apr 17, 2020 Date of Discharge: Date of Discharge: Apr 20, 2020 Discharge Diagnosis: Discharge Diagnosis: - Acute glaucoma - Headache - Bilateral visual loss Hospital Course: Hospital Course: 70-year-old female who developed visual problems over the past 3 days. It started on Thursday, it has gotten a lot worse. In fact, today she could not even see her finger. Dr. Alicea our ER physician checked her ocular pressures and indeed they are above normal. They are quite high at 45. We were concerned that she has acute glaucoma. Dr. Alicea called Dr. Epsinoza, our level vial inspector who is filtration plant operator. IV mannitol was administered in the Emergency Room along with oral Diamox and topical timolol and brimonidine. The patient has noted improvement in her visual function on bedside examination on 04/18. Dr. Edison Cotton was contacted as the patient had seen Dr. Cotton in 03/2019. At that time, she was noted to have narrow angles and at risk for narrow-angle glaucoma and was to be scheduled for cataract extraction in both eyes with phacomorphic lenses. The patient did not follow up. Dr. Cotton was consulted today and has agreed to see the patient in transfer on the and proceed with either iridotomy and subsequent cataract extraction as safely determined Patient was actually discharged on the and went directly to Dr Cotton's office for her procedure. The rest of her hospital course was uneventful. Disposition: Disposition/Orders: D/C to Home Activity: Activity: Resume previous activity Diet: Diet: Regular Medications: Home Meds Reported Medications Acetaminophen (ACETAMINOPHEN) 325 Mg Tablet, 650 MG PO PRN Q6HRS PRN for PAIN, TAB 04/17/20 Discontinued Reported Medications Naproxen Sodium (ALEVE) 220 Mg Tablet, 220 MG PO BID for paib, TAB 04/17/20 Scheduled PRN Acetaminophen (Acetaminophen), 650 MG PO PRN Q6HRS PRN for PAIN, (Reported) Discontinued Medications Naproxen Sodium (Aleve), 220 MG PO BID, (Reported) Total Time: Total Time: Total time spent was 45 minutes in preparing scripts, discharge planning with SW and RN, and preparing this discharge summary. Patient seen and examined on day of discharge. Justicifation of Admission Dx: Justifications for Admission: Justification of Admission Dx: Yes Sepsis: End-Organ Dysfunction ORLY ALVAREZ MD Apr 22, 2020 20:39
== END 2020-04-20 13:30 | disposition home or self-care (01) | DRG 125 ==
LOC: ER 16:16 → ED HOLD 17:57 → 2 SOUTH 19:57
PROVIDERS: ADMIT Internal Medicine; ATTEND Internal Medicine
DX: H40.9 Unspecified glaucoma (principal); R65.10 Systemic inflammatory response syndrome (SIRS) of non-infectious origin without acute organ dysfunction; H54.3 Unqualified visual loss, both eyes; D72.829 Elevated white blood cell count, unspecified; Z20.822 Contact with and (suspected) exposure to COVID-19; Z83.3 Family history of diabetes mellitus; Z87.891 Personal history of nicotine dependence
CPT/HCPCS: 36415; 70450; 71045; 80053; 81001; 82962; 83605; 83735; 83880; 84484; 85007; 85025; 87040; 87426; 93005; 96365; 96366; 96375; 96376; J0696; J1120; J2150; J7030; U0003; 97535-GO; 99285-25; G0378